=== PATIENT | male | born 1970 | race Caucasian/White ===

== ENCOUNTER → 2022-11-28 | Outpatient (CLI) | payer MEDICARE, OTHER ==
--- NOTE | 2022-11-28 15:31 | US ---
EXAMINATION TYPE: US venous doppler duplex LE DATE OF EXAM: 11/28/2022 1:30 PM COMPARISON: NONE CLINICAL INDICATION: Male, 52 years old with history of R22.43; Bilateral leg edema. Not on blood th inners. Patient just had right hip surgery October 24. SIDE PERFORMED: Bilateral TECHNIQUE: The lower extremity deep venous system is examined utilizing real time linear array sonog rocael with graded compression, doppler sonography and color-flow sonography. VESSELS IMAGED: Common Femoral Vein Deep Femoral Vein Greater Saphenous Vein * Femoral Vein Popliteal Vein Small Saphenous Vein * Proximal Calf Veins (* superficial vessels) Right Leg: Negative for DVT Left Leg: Negative for DVT IMPRESSION: No evidence for DVT within the bilateral lower extremities imaged from the groin to the upper calves.
== END | disposition home or self-care (01) ==
LOC: RADUSWWP 13:27
PROVIDERS: ATTEND Family Medicine
DX: R22.43 Localized swelling, mass and lump, lower limb, bilateral (principal)
CPT/HCPCS: 93970